=== PATIENT | male | born 1965 | race Native Hawaiian/Other Pacific Islander ===

== ENCOUNTER 2022-11-26 08:54 | Outpatient (CLI) | payer OTHER | END 2022-11-26 19:05 | disposition home or self-care (01) | LOC: RAD 08:54 | PROVIDERS: ATTEND Internal Medicine | DX: M25.511 Pain in right shoulder (principal); M79.18 Myalgia, other site ==

== ENCOUNTER 2023-01-03 13:47 | Outpatient (CLI) | payer OTHER | END 2023-01-03 18:52 | disposition home or self-care (01) | LOC: MRI 13:47 | PROVIDERS: ATTEND Physician Assistant | DX: M75.121 Complete rotator cuff tear or rupture of right shoulder, not specified as traumatic (principal) ==

== ENCOUNTER 2023-01-22 09:26 | Outpatient (CLI) | payer OTHER | END 2023-01-22 20:07 | disposition home or self-care (01) | LOC: US 09:26 | PROVIDERS: ATTEND Internal Medicine | DX: R10.9 Unspecified abdominal pain (principal) ==

== ENCOUNTER 2023-02-01 08:16 | Outpatient (CLI) | payer OTHER | END 2023-02-01 19:43 | disposition home or self-care (01) | LOC: NM 08:16 | PROVIDERS: ATTEND Internal Medicine | DX: R10.9 Unspecified abdominal pain (principal) | CPT/HCPCS: A9537 ==